=== PATIENT | female | born 1990 | race American Indian/Alaskan Native ===

== ENCOUNTER 2020-03-14 19:44 | Emergency (ER) | payer SELFPAY ==
[2020-03-14 20:30] VITALS: BP 132/94
--- NOTE | 2020-03-14 20:30 | Event Note ---
ED Screening Note ED Screening Note: left sided CP radiates to left arm and left leg began a week hx of anxiety feels like her heart beats fast states sharp and tightness no n/v/d no fever no cough no sob no leg swelling PMHx asthma, anxiety no allergies to meds LNMP: two days ago no family hx of AR no recent travel, no recent surgery, no hormone use, no immobilization This initial assessment/diagnostic orders/clinical plan/treatment(s) is/are subject to change based on patients health status, clinical progression and re-assessment by fellow clinical providers in the ED. Further treatment and workup at subsequent clinical providers discretion. Patient/guardian urged not to elope from the ED as their condition may be serious if not clinically assessed and managed. Initial orders include: cp protocol
[2020-03-14 20:45] LABS: Hematocrit 35.8 % (30.3-42.9); Mean Corpuscular HGB Conc 34 % (30-34); Mean Corpuscular Volume 91 fl (79-97); Platelet Count 328 K/mm3 (140-440); Red Blood Count 3.93 M/mm3 (3.65-5.03); Red Cell Distribution Width 13.3 % (13.2-15.2)
[2020-03-14] MEDS ORDERED: ALPRAZolam 0.5 MG TAB PO ONE (20:49)
[2020-03-14] MEDS ORDERED: ASPIRIN EC 325 MG TAB PO ONE (20:49)
[2020-03-14 21:09] LABS: Alanine Aminotransferase 15 units/L (7-56); BUN/Creatinine Ratio 17; Blood Urea Nitrogen 17 mg/dL (7-17); Calcium 9.3 mg/dL (8.4-10.2); Hemolysis Index 15
[2020-03-14 21:23] LABS: Albumin 4.2 g/dL (3.9-5)
[2020-03-14 21:41] LABS: Total Cells Counted 100
[2020-03-14 21:42] LABS: RBC Morphology Normal
--- NOTE | 2020-03-14 22:08 | XRay Report ---
CHEST 2 VIEWS INDICATION / CLINICAL INFORMATION: Chest pain. COMPARISON: None available. FINDINGS: SUPPORT DEVICES: None. HEART / MEDIASTINUM: No significant abnormality. LUNGS / PLEURA: No significant pulmonary or pleural abnormality. No pneumothorax. ADDITIONAL FINDINGS: No significant additional findings. IMPRESSION: No acute cardiopulmonary abnormality. Signer Name: Chris Arzate MD Signed: 03/14/2020 10:03 PM Workstation Name: [id number]
--- NOTE | 2020-03-14 23:16 | Emergency Department Report ---
ED Chest Pain HPI - General Chief Complaint: Chest Pain Stated Complaint: PANIC ATTACK, CHEST PAIN Time Seen by Provider: 03/14/20 20:27 Source: patient, EMS Mode of arrival: Ambulatory Limitations: No Limitations - History of Present Illness Initial Comments: Patient is a 29-year-old -[place] female with a history of asthma and anxiety who presents to the ED with complaint of acute onset persistent left- sided chest pain that radiates to the left arm for the last 1 week. Patient states that the pain initially started intermittently but in the last 2 days the pain has been constant and worse. Patient states that she does not take any medication at this time for anxiety for almost 6 months. Patient denies nausea, vomiting, diaphoresis, dizziness, syncope, fall, heavy lifting, left arm weakness, abdominal pain, fever, chills, cough, sore throat, neck pain, headache, seizures, diarrhea, back pain, change in vision or dysuria or urinary frequency and urgency. MD Complaint: chest pain (Left-sided chest pain), other (Left arm tingling sensation) -: Sudden, week(s) (1) Onset: awoke with symptoms Pain Location: left chest Pain Radiation: LUE Severity: severe Severity scale (0 -10): 7 Quality: aching, sharp Consistency: constant Improves With: nothing Worsens With: palpation, movement Context: other (History of chronic anxiety) re: denies: nausea, vomting, diaphoresis, dyspnea, sense of impending doom Other Symptoms: palpitations Treatments Prior to Arrival: none Aspirin use within the Past 7 Days: (0) No - Related Data On Oral Contraceptives: No Previous Rx's Medication Instructions Recorded Last Taken Type Naproxen 500 mg PO Q12H PRN #30 tablet 03/14/20 Unknown Rx hydrOXYzine PAMOATE [Vistaril] 50 mg PO Q12HR PRN #60 capsule 03/14/20 Unknown Rx Allergies Allergy/AdvReac Type Severity Reaction Status Date / Time No Known Allergies Allergy Verified 03/14/20 20:29 Heart Score - HEART Score History: Slightly suspicious EKG: Normal Age: < 45 Risk factors: No known risk factors Troponin: < normal limit HEART Score: 0 ED Review of Systems ROS: Stated complaint: PANIC ATTACK, CHEST PAIN Other details as noted in HPI Constitutional: denies: chills, fever Eyes: denies: eye pain, eye discharge, vision change ENT: denies: ear pain, throat pain Respiratory: denies: cough, shortness of breath, wheezing Cardiovascular: chest pain (Left-sided chest pain). denies: palpitations Endocrine: no symptoms reported Gastrointestinal: denies: abdominal pain, nausea, vomiting, diarrhea Genitourinary: denies: urgency, dysuria, discharge Musculoskeletal: arthralgia (Left shoulder pain). denies: back pain, joint swelling Skin: denies: rash, lesions Neurological: denies: headache, weakness, paresthesias Psychiatric: anxiety. denies: depression Hematological/Lymphatic: denies: easy bleeding, easy bruising ED Past Medical Hx - Past Medical History Previous Medical History?: No Hx Psychiatric Treatment: Yes (Anxiety) Hx Asthma: Yes - Surgical History Past Surgical History?: No - Social History Smoking Status: Never Smoker Substance Use Type: None - Medications Home Medications: Home Medications Medication Instructions Recorded Confirmed Last Taken Type Naproxen 500 mg PO Q12H PRN #30 tablet 03/14/20 Unknown Rx hydrOXYzine PAMOATE [Vistaril] 50 mg PO Q12HR PRN #60 capsule 03/14/20 Unknown Rx ED Physical Exam - General Limitations: No Limitations General appearance: alert, in no apparent distress - Head Head exam: Present: atraumatic, normocephalic, normal inspection - Eye Eye exam: Present: normal appearance, PERRL, EOMI - ENT ENT exam: Present: normal exam, normal orophraynx, mucous membranes moist, TM's normal bilaterally, normal external ear exam - Neck Neck exam: Present: normal inspection - Respiratory Respiratory exam: Present: normal lung sounds bilaterally. Absent: respiratory distress, wheezes, rales, rhonchi, chest wall tenderness, accessory muscle use, decreased breath sounds - Cardiovascular Cardiovascular Exam: Present: regular rate, normal rhythm, normal heart sounds. Absent: systolic murmur, diastolic murmur, rubs, gallop - GI/Abdominal GI/Abdominal exam: Present: soft, normal bowel sounds. Absent: tenderness, guarding, rebound, hyperactive bowel sounds, hypoactive bowel sounds, organomegaly - Extremities Exam Extremities exam: Present: normal inspection, full ROM, normal capillary refill - Back Exam Back exam: Present: normal inspection, full ROM. Absent: tenderness, CVA tenderness (R), CVA tenderness (L), muscle spasm, paraspinal tenderness - Neurological Exam Neurological exam: Present: alert, oriented X3, CN II-XII intact, normal gait, reflexes normal - Psychiatric Psychiatric exam: Present: normal affect, normal mood - Skin Skin exam: Present: warm, dry, intact, normal color. Absent: rash ED Course Vital Signs 03/14/20 19:53 Temperature 98.9 F Pulse Rate 97 H Respiratory 18 Rate Blood Pressure 132/94 O2 Sat by Pulse 100 Oximetry PARMINDER score - Parminder Score Age > 65: (0) No Aspirin use within the Past 7 Days: (0) No 3 or more CAD Risk Factors: (0) No 2 or more Angina events in past 24 hrs: (0) No Known CAD with more than 50% Stenosis: (0) No Elevated Cardiac Markers: (0) No ST Deviation Greater than 0.5mm: (0) No PARMINDER Score: 0 ED Medical Decision Making - Lab Data Result diagrams: 03/14/20 20:36 03/14/20 20:36 - EKG Data EKG shows normal: sinus rhythm Rate: normal - EKG Data Interpretation: normal EKG 03/14/20 23:26 EKG shows normal sinus rhythm with a ventricular rate of [address] or T wave abnormalities. - Radiology Data Radiology results: report reviewed, [place] [address] XRay Report Signed Patient: SAMANTHA DUNAWAY MR#: [id number] : 1990 Acct:[id number] Age/Sex: 29 / F ADM Date: 03/14/20 Loc: ED Attending Dr: Ordering Physician: JOI GARCIA Date of Service: 03/14/20 Procedure(s): XR chest routine 2V Accession Number(s): [id number] cc: JOI GARCIA Fluoro Time In Minutes: CHEST 2 VIEWS INDICATION / CLINICAL INFORMATION: Chest pain. COMPARISON: None available. FINDINGS: SUPPORT DEVICES: None. HEART / MEDIASTINUM: No significant abnormality. LUNGS / PLEURA: No significant pulmonary or pleural abnormality. No pneumothorax. ADDITIONAL FINDINGS: No significant additional findings. IMPRESSION: No acute cardiopulmonary abnormality. Signer Name: Amy Arzate MD Signed: 03/14/2020 10:03 PM Workstation Name: [id number] Transcribed By: MARTIN Dictated By: AMY ARZATE Electronically Authenticated By: AMY ARZATE Signed Date/Time: 03/14/202202 DD/ 02 TD/TT: - Medical Decision Making This is a 29-year-old -[place] female with a history of asthma and anxiety who presents to the ED with complaint of acute onset persistent left- sided chest pain that radiates to the left arm for the last 1 week. Patient states that the pain initially started intermittently but in the last 2 days the pain has been constant and worse. Patient states that she does not take any medication at this time for anxiety for almost 6 months. In the ED, patient is alert and oriented x3 and is not in distress with normal vital signs. EKG shows normal sinus rhythm with a ventricular rate of [address] or T wave abnormalities. Chest x-ray shows no acute cardiopulmonary normalities or pneumonitis. Patient was treated in the ED with aspirin and also given anxiety medication Xanax. On reevaluation, patient's symptoms resolved, and patient fell asleep in the room but arousable and stated that her pain is resolved. Patient's heart score is 0 and is PERC negative per Wells criteria. Patient is hemodynamically stable and was discharged home on medications for anxiety and anti-inflammatory pain medication. Patient was advised to follow-up with her primary care physician in 7 to 10 days for reevaluation or return to the ED immediately if symptoms get worse. - Differential Diagnosis ACS; Anxiety; Muscle strain; PE; Dissection; Pneumonia; Critical care attestation.: If time is entered above; I have spent that time in minutes in the direct care of this critically ill patient, excluding procedure time. ED Disposition Clinical Impression: Left-sided chest pain, Anxiety as acute reaction to exceptional stress Disposition: DC-01 TO HOME OR SELFCARE Is pt being admited?: No Does the pt Need Aspirin: No Condition: Stable Instructions: Chest Pain (ED), Nonspecific Chest Pain, Adult, [id number], Generalized Anxiety Disorder, Adult Additional Instructions: All lab test results were reviewed and are all nonactionable. Chest x-ray showed no acute cardiopulmonary abnormalities or pneumonitis. Symptoms are likely due to combination of muscle strain, muscle spasm and generalized anxiety. Therefore take medications with food, drink plenty fluids and follow- up with your primary care physician in 5 to 7 days for reevaluation return to the ED immediately if symptoms get worse. Prescriptions: Naproxen 500 mg PO Q12H PRN #30 tablet PRN Reason: Pain , Severe (7-10) hydrOXYzine PAMOATE [Vistaril] 50 mg PO Q12HR PRN #60 capsule PRN Reason: Anxiety Referrals: [facility] [Provider Group] - 3-5 Days Time of Disposition: 23:14 Print Language: MAORI
== END 2020-03-14 23:25 | disposition home or self-care (01) ==
LOC: ED 19:44
DX: F41.1 Generalized anxiety disorder (principal); F43.0 Acute stress reaction; R07.89 Other chest pain; J45.909 Unspecified asthma, uncomplicated; Z79.899 Other long term (current) drug therapy
CPT/HCPCS: 36415; 71046; 80053; 84484; 84703; 85007; 85025; 93005

== ENCOUNTER 2020-12-17 06:34 | Emergency (ER) | payer SELFPAY | END 2020-12-17 06:42 | disposition left against medical advice (07) | LOC: ED 06:34 | DX: Z00.00 Encounter for general adult medical examination without abnormal findings (principal); Z53.21 Procedure and treatment not carried out due to patient leaving prior to being seen by health care provider ==